=== PATIENT | male | born 1940 | race Caucasian/White ===

== ENCOUNTER 2020-06-01 05:52 | Outpatient (REF) | payer MEDICARE, SELFPAY ==
[2020-06-01 09:45] LABS: Prostate Specific Antigen 4.96 ng/mL (<0.05-4.0)
== END 2020-06-01 05:53 | disposition home or self-care (01) ==
LOC: HO.HSHHMC 05:52
PROVIDERS: Visit Provider Internal Medicine Interventional Cardiology
DX: R35.1 Nocturia (principal); R39.11 Hesitancy of micturition; Z12.5 Encounter for screening for malignant neoplasm of prostate
CPT/HCPCS: 84153

== ENCOUNTER 2020-10-21 05:40 | Outpatient (REF) | payer MEDICARE, SELFPAY ==
[2020-10-21 11:34] LABS: Alanine Aminotransferase 15 U/L (0-40); Albumin Level 4.2 g/dL (3.5-5.0); Alkaline Phosphatase 87 U/L (39-117); Anion Gap 14 (12-20); Aspartate Amino Transferase 16 U/L (5-37); Bilirubin Total 0.5 mg/dL (0.0-1.0); Blood Urea Nitrogen 25 mg/dL (9-16); Carbon Dioxide 24 mmol/L (22-29); Chloride 106 mmol/L (96-108); Cholesterol 183 mg/dL; Estimated Glomerular Filt Rate 56; Glucose Fasting 186 mg/dL (60-99); HDL Cholesterol 31 mg/dL; LDL Cholesterol Calculated 122 mg/dl; Potassium 4.2 mmol/L (3.3-5.1); Sodium 140 mmol/L (135-145); Total Protein 6.8 g/dL (6.5-8.0); Triglycerides 153 mg/dL
[2020-10-21 11:51] LABS: Estimated Average Glucose 192 mg/dL; Hemoglobin A1c % 8.3 %
== END 2020-10-21 05:41 | disposition home or self-care (01) ==
LOC: HO.HSHHMC 05:40
PROVIDERS: Visit Provider Internal Medicine Interventional Cardiology
DX: E11.9 Type 2 diabetes mellitus without complications (principal); I10 Essential (primary) hypertension; N40.0 Benign prostatic hyperplasia without lower urinary tract symptoms; Z79.4 Long term (current) use of insulin
CPT/HCPCS: 36415; 80053; 80061; 83036